=== PATIENT | female | born 1945 | race Caucasian/White ===

== ENCOUNTER 2019-01-14 10:19 | Day surgery (SDC) | payer OTHER ==
[~2019-01-14 10:19] MED LIST: AMIO200T4 PO; APIX5TAB PO; ASPI-482 PO; CHOL10003 PO; CITA20TA6 PO; CLOP75TA PO; DIGO125T79 PO; DILT120C2 PO; DOCU-109 PO; EZET10TA18 PO; HYDROmorphone 2 MG/ML VIAL IV PRN; IV RINGERS,LACTATED 1000ML 1,000 ML IV SCH; LEVO250T25 PO; MORPHINE SULFATE 2 MG/ML VIAL. IV PRN; OMEG1CAP50 PO; PROCHLORPERAZINE 10 MG/2 ML VIAL. IV PRN; SOTA80TA48 PO; UBID100C40 PO; fentaNYL PF VIAL 100 MCG/2 ML VIAL IV PRN
[2019-01-14 11:54] LABS: HEMATOCRIT 48.3 % (36.0-47.0); RED BLOOD COUNT 5.42 x10^6/uL (3.50-5.40); WHITE BLOOD COUNT 8.3 x10^3/uL (4.0-11.0)
[2019-01-14 12:06] LABS: CALCIUM 9.2 mg/dL (8.5-10.1); CREATININE 0.9 mg/dL (0.6-1.0); GFR 61.4; POTASSIUM 4.2 mmol/L (3.5-5.1)
[2019-01-14] MEDS ORDERED: PROPOFOL 40 ML IV ONE (12:47)
[2019-01-14] MEDS ORDERED: LIDOCAINE 2% PF 5 ML VIAL. ONE (12:47)
--- NOTE | 2019-01-14 13:06 | PDOC4 ---
PROCEDURE Procedure PROCEDURE External cardioversion INDICATIONS Atrial fibrillation COMPLICATIONS None PROCEDURAL DETAILS An informed consent was obtained from patient. After anesthesiology team gave intravenous propofol the patient for general anesthesia, she was administered 200 J of synchronized biphasic DC current with successful conversion of patient's rhythm from atrial fibrillation to sinus rhythm. She was hemodynamically stable without any neurological deficits at the end of procedure. She tolerated the procedure well. CONCLUSIONS Successful external cardioversion of atrial fibrillation to sinus rhythm JIMY GILL MD January 14, 2019 13:06
--- NOTE | 2019-01-14 13:25 | EKG ---
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
--- NOTE | 2019-01-14 13:34 | EKG ---
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
[2019-01-14 13:45] VITALS: BP 98/61
--- NOTE | 2019-01-14 16:43 | CARD ---
MR#: [id number] Date of Study: 01/14/2019 Ordering Physician: JIMY GILL, Referring Physician: JIMY GILL Tech: Ramila Bowling RDCS APPROVED REPORT EXAM: Two-dimensional and M-mode echocardiogram with Doppler and color Doppler. Other Information Quality : AverageHR: 60bpm Rhythm : NSR INDICATION Atrial Fibrillation 2D DIMENSIONS RVDd2.4 (2.9-3.5cm)Left Atrium(2D)4.2 (1.6-4.0cm) IVSd2.1 (0.7-1.1cm)Aortic Root(2D)3.2 (2.0-3.7cm) LVDd4.0 (3.9-5.9cm)LVOT Diameter2.0 (1.8-2.4cm) PWd1.4 (0.7-1.1cm)LVDs2.5 (2.5-4.0cm) FS (%) 36.8 %SV47.8 ml LVEF(%)67.2 (>50%) Aortic Valve AoV Peak Bridger.153.8cm/sAoV VTI28.8cm AO Peak GR.9.5mmHgLVOT Peak Bridger.113.4cm/s AO Mean GR.5mmHgAVA (VMAX)2.26cm2 EDILIA (VTI)2.30cm2 Mitral Valve MV E Vfpxdmwv974.5cm/sMV DECEL GBZD189ll MV A Psblzfed31.1cm/sE/A Ratio2.9 Pulmonary Valve PV Peak Iqcixywq847.7cm/s Tricuspid Valve TR P. Oghpduck080sd/sRAP BDOHNQVH4uyUq TR Peak Gr.82mwEyIKFZ69cuUu LEFT VENTRICLE The left ventricle is normal size. There is severe concentric left ventricular hypertrophy. The left ventricular systolic function is normal and the ejection fraction is within normal range. The Ejectio n Fraction is 65-70%. There is normal LV segmental wall motion. Transmitral Doppler flow pattern is G rade III-reversible restrictive diastolic dysfunction. RIGHT VENTRICLE The right ventricle is normal size. There is normal right ventricular wall thickness. The right ventr icular systolic function is normal. ATRIA The left atrium is mildly dilated. The right atrium size is normal. The interatrial septum is intact with no evidence for an atrial septal defect or patent foramen ovale as noted on 2-D or Doppler imagi ng. AORTIC VALVE The aortic valve is mildly calcified. The aortic valve is trileaflet. Doppler and Color Flow revealed no significant aortic regurgitation. There is no significant aortic valvular stenosis. There is no a ortic valvular vegetation. MITRAL VALVE Mitral annular calcification is moderate. There is no evidence of mitral valve prolapse. There is no mitral valve stenosis. Doppler and Color-flow revealed trace mitral regurgitation. TRICUSPID VALVE The tricuspid valve is normal in structure and function. Doppler and Color Flow revealed trace to mil d tricuspid regurgitation. There is moderate pulmonary hypertension. The PA pressure was estimated at 48 mmHg. There is no tricuspid valve prolapse or vegetation. There is no tricuspid valve stenosis. PULMONIC VALVE Doppler and Color Flow revealed trace pulmonic valvular regurgitation. There is no pulmonic valvular stenosis. GREAT VESSELS The aortic root is normal in size. The ascending aorta is normal in size. The IVC is normal in size a nd collapses >50% with inspiration. PERICARDIAL EFFUSION There is no evidence of significant pericardial effusion. Critical Notification Critical Value: No <Conclusion> The left ventricular systolic function is normal and the ejection fraction is within normal range. Th e Ejection Fraction is 65-70%. There is normal LV segmental wall motion. There is severe concentric left ventricular hypertrophy. Doppler and Color Flow revealed trace to mild tricuspid regurgitation. There is moderate pulmonary hy pertension. The PA pressure was estimated at 48 mmHg. Signed by : Daniel Jaimes, Electronically Approved : 01/14/2019 16:43:23
== END 2019-01-14 14:04 | disposition home or self-care (01) ==
LOC: SURG 10:19
PROVIDERS: ATTEND Internal Medicine Cardiovascular Disease
DX: I48.0 Paroxysmal atrial fibrillation (principal); F41.9 Anxiety disorder, unspecified; K21.9 Gastro-esophageal reflux disease without esophagitis; I10 Essential (primary) hypertension; E78.5 Hyperlipidemia, unspecified; I25.10 Atherosclerotic heart disease of native coronary artery without angina pectoris; Z86.73 Personal history of transient ischemic attack (TIA), and cerebral infarction without residual deficits; Z80.41 Family history of malignant neoplasm of ovary; Z80.1 Family history of malignant neoplasm of trachea, bronchus and lung; Z87.891 Personal history of nicotine dependence; Z72.89 Other problems related to lifestyle; Z88.2 Allergy status to sulfonamides; Z88.8 Allergy status to other drugs, medicaments and biological substances; Z79.899 Other long term (current) drug therapy; Z79.82 Long term (current) use of aspirin
CPT/HCPCS: 36415; 80048; 85027; 92960; 93005; 93306; J2001; J2704

== ENCOUNTER → 2021-03-05 | Outpatient (CLI) | payer MEDICARE ==
[~2021-03-05] MED LIST changes: -AMIO200T4 PO; +AMIO200T6 PO; -EZET10TA18 PO; +EZET10TA20 PO; -HYDROmorphone 2 MG/ML VIAL IV PRN; -IV RINGERS,LACTATED 1000ML 1,000 ML IV SCH; -MORPHINE SULFATE 2 MG/ML VIAL. IV PRN; -PROCHLORPERAZINE 10 MG/2 ML VIAL. IV PRN; -fentaNYL PF VIAL 100 MCG/2 ML VIAL IV PRN
--- NOTE | 2021-03-05 16:05 | CARD ---
MR#: [id number] Date of Study: 03/05/2021 Ordering Physician: KAMILLE ROSARIO, Referring Physician: KAMILLE ROSARIO, Tech: Lynsey Quintana [facility] APPROVED REPORT EXAM: Two-dimensional and M-mode echocardiogram with Doppler and color Doppler. Other Information Quality : Technically LimitedHR: 67bpm Rhythm : NSR INDICATION Atrial Fibrillation RISK FACTORS Hypertension 2D DIMENSIONS RVDd3.3 (2.9-3.5cm)Left Atrium(2D)5.9 (1.6-4.0cm) IVSd2.4 (0.7-1.1cm)Aortic Root(2D)3.2 (2.0-3.7cm) LVDd5.0 (3.9-5.9cm)LVOT Diameter2.3 (1.8-2.4cm) PWd1.6 (0.7-1.1cm)LVDs3.0 (2.5-4.0cm) FS (%) 40.0 %SV81.4 ml LVEF(%)70.4 (>50%) Aortic Valve AoV Peak Bridger.163.9cm/sAoV VTI31.2cm AO Peak GR.10.7mmHgLVOT Peak Bridger.135.6cm/s AO Mean GR.5mmHgAVA (VMAX)3.41cm2 Mitral Valve MV E Jxeajshw473.6cm/sMV DECEL UFWE113wv MV A Xunrkqqa69.4cm/sE/A Ratio2.4 Tricuspid Valve TR P. Xfmdoopj811uh/sTR Peak Gr.41mmHg LEFT VENTRICLE The left ventricle is normal size. Moderate asymetric septal hypertrophy. The left ventricular systol ic function is normal. Estimated ejection fraction 65%. There is normal LV segmental wall motion. Tr ansmitral Doppler flow pattern is Grade III-reversible restrictive diastolic dysfunction. RIGHT VENTRICLE The right ventricle is normal size. There is normal right ventricular wall thickness. The right ventr icular systolic function is normal. ATRIA The left atrium is mildly dilated. The right atrium size is normal. The interatrial septum is intact with no evidence for an atrial septal defect or patent foramen ovale as noted on 2-D or Doppler imagi ng. AORTIC VALVE The aortic valve is normal in structure and function. Doppler and Color Flow revealed no significant aortic regurgitation. There is no significant aortic valvular stenosis. MITRAL VALVE The mitral valve is normal in structure and function. There is no evidence of mitral valve prolapse. There is no mitral valve stenosis. Doppler and Color-flow revealed mild mitral regurgitation. TRICUSPID VALVE The tricuspid valve is normal in structure and function. Doppler and Color Flow revealed mild tricusp id regurgitation. Estimated PAP 45-50%. There is no tricuspid valve stenosis. PULMONIC VALVE The pulmonary valve is normal in structure and function. Doppler and Color Flow revealed mild pulmoni c valvular regurgitation. GREAT VESSELS The aortic root is normal in size. The ascending aorta is normal in size. The IVC is normal in size a nd collapses >50% with inspiration. PERICARDIAL EFFUSION There is no evidence of significant pericardial effusion. Critical Notification Critical Value: No <Conclusion> The left ventricular systolic function is normal. Estimated ejection fraction 65%. There is normal LV segmental wall motion. Transmitral Doppler flow pattern is Grade III-reversible restrictive diastolic dysfunction. Mild mitral regurgitation. Mild tricuspid regurgitation. Estimated PAP 45-50%. There is no evidence of significant pericardial effusion. Signed by : Aquilino Galdamez, Electronically Approved : 03/05/2021 16:05:46
== END ==
LOC: ECHO 12:51
PROVIDERS: ATTEND Family Medicine
DX: I08.8 Other rheumatic multiple valve diseases (principal); I11.9 Hypertensive heart disease without heart failure; I48.91 Unspecified atrial fibrillation
CPT/HCPCS: 93306